=== PATIENT | female | born 1940 | race Caucasian/White ===

== ENCOUNTER 2019-10-10 11:47 | Outpatient (CLI) | payer OTHER, SELFPAY ==
--- NOTE | 2019-10-14 12:14 | WPDHOLTEREM ---
Holter/Event Monitor Holter/Event Monitor Date of procedure: 10/10/19 Procedure Type: 48 hour holter monitor Indications: Palpitations Conclusion: 1. 48 hour holter monitor on 10/10/19. 2. Predominant rhythm is sinus rhythm. HR range 55-120 bpm; average HR 76 bpm. 3. There are 276 premature supraventricular complexes and 4 supraventricular couplets. There are 2 episodes of supraventricular tachycardia, fastest at 126 bpm and longest lasting 6 beats. 4. There are 48 premature ventricular complexes. No ventricular tachycardia. 5. No sinoatrial or atrioventricular blocks. No significant pauses greater than 2 seconds. 6. Patient reports symptoms of dizziness, weakness, shakiness, out of breath, fast heart beat which demonstrate sinus rhythm, HR range 65-103 bpm.
== END 2019-10-10 11:48 | disposition home or self-care (01) ==
PROVIDERS: PCP Family Medicine; Visit Provider Internal Medicine Cardiovascular Disease
DX: R00.2 Palpitations (principal); I10 Essential (primary) hypertension
CPT/HCPCS: 93225; 93226

== ENCOUNTER → 2019-12-17 10:20 | Outpatient (CLI) | payer OTHER, SELFPAY ==
--- NOTE | ~2019-12-17 | XR_ITS ---
XR ankle LT 2V DATE: 12/17/2019 13:18 INDICATION: Left ankle pain, left foot pain TECHNIQUE: 3 views COMPARISON: None FINDINGS: There is a screw through the medial malleolus. Diffuse osteopenia. Mild lateral soft tissue swelling. No fracture or dislocation of the ankle or disruption of the ankle mortise. IMPRESSION: Osteopenia Mild lateral soft tissue swelling Reviewed, dictated and finalized at location B.
== END ==
PROVIDERS: Visit Provider Nurse Practitioner Family
DX: M79.89 Other specified soft tissue disorders (principal); M19.072 Primary osteoarthritis, left ankle and foot
CPT/HCPCS: 73600